=== PATIENT | male | born 1955 | race American Indian/Alaskan Native ===

== ENCOUNTER 2019-02-23 17:05 | Emergency (ER) | payer OTHER ==
--- NOTE | 2019-02-23 17:29 | Emergency Department Report ---
Blank Doc - Documentation Documentation: This is a 64-year-old male that presents with acute right obstructive uropathy measuring 5.6 mm. Was seen in urgent and was sent to the ED. Patient stated has diffuse adbominal pain. This initial assessment/diagnostic orders/clinical plan/treatment(s) is/are subject to change based on patient's health status, clinical progression and re- assessment by fellow clinical providers in the ED. Further treatment and workup at subsequent clinical providers discretion. Patient/guardians urged not to elope from the ED as their condition may be serious if not clinically assessed and managed. Initial orders include: 1- Patient sent to MAIN for further evaluation and treatment 2- labs 3- UA
[2019-02-23 17:59] LABS: Basophils % (Auto) 0.4 % (0.0-1.8); Hematocrit 51.1 % (35.5-45.6); Hemoglobin 17.6 gm/dl (11.8-15.2); Lymphocytes # (Auto) 0.7 K/mm3 (1.2-5.4); Lymphocytes % (Auto) 7.8 % (13.4-35.0); Mean Corpuscular HGB Conc 35 % (32-34); Mean Corpuscular Volume 85 fl (84-94); Monocytes # (Auto) 0.6 K/mm3 (0.0-0.8); Monocytes % (Auto) 7.2 % (0.0-7.3); Platelet Count 138 K/mm3 (140-440); Red Blood Count 5.99 M/mm3 (3.65-5.03); Red Cell Distribution Width 14.3 % (13.2-15.2)
[2019-02-23 18:08] LABS: Alanine Aminotransferase 49 units/L (7-56); Albumin 4.4 g/dL (3.9-5); BUN/Creatinine Ratio 12; Blood Urea Nitrogen 13 mg/dL (9-20); Calcium 9.4 mg/dL (8.4-10.2); Hemolysis Index 13
[2019-02-23 18:09] LABS: Bilirubin,Direct < 0.2 mg/dL (0-0.2)
[2019-02-23 19:38] LABS: Bilirubin,Urine NEG (Negative); Blood,Urine LG (Negative); Color,Urine Yellow (Yellow); Urobilinogen,Urine < 2.0 mg/dL (<2.0)
[2019-02-23 19:40] LABS: Protein,Urine 300 mg/dL mg/dL (Negative); RBC,Urine > 182.0 /HPF (0.0-6.0)
[2019-02-23] MEDS ORDERED: NACL 0.9% 1000 ML 1,000 ML IV ONE (20:13)
[2019-02-23] MEDS ORDERED: LEVAQUIN 750MG/150ML 750 MG/150 ML BAG IV ONE (20:14)
[2019-02-23] MEDS ORDERED: TORADOL IV ONE (20:14)
[2019-02-23] MEDS ORDERED: MORPHINE IV ONE (20:14)
--- NOTE | 2019-02-23 20:33 | Emergency Department Report ---
HPI - General Chief Complaint: Abdominal Pain Time Seen by Provider: 02/23/19 17:26 - HPI HPI: 64-year-old -Swedish male presents to the emergency department with complaint of some right-sided flank pain and groin pain that has been going on since this morning. It was associated with some nausea and vomiting patient denies any fever, hematuria, dysuria. The patient went to urgent care where he was treated with some nausea medication and then sent to outpatient imaging for a CT of the abdomen and pelvis with IV contrast. The patient brings the results with him that shows a right-sided mid ureteral 5.6 mm stone. At this time, the patient says that he still has pain but it is improved and the nausea/vomiting has resolved. He otherwise denies any other significant past medical history. ED Past Medical Hx - Past Medical History Hx Kidney Stones: Yes - Surgical History Past Surgical History?: No - Social History Smoking Status: Never Smoker Substance Use Type: None - Medications Home Medications: Home Medications Medication Instructions Recorded Confirmed Last Taken Type Ciprofloxacin HCl [Ciprofloxacin 500 mg PO Q12HR #10 tab 02/23/19 Unknown Rx TAB] HYDROcodone/APAP 5-325 [[place] 1 each PO Q6HR PRN #10 tablet 02/23/19 Unknown Rx 5/325] Tamsulosin [Flomax] 0.4 mg PO QDAY #5 cap 02/23/19 Unknown Rx ED Review of Systems ROS: Stated complaint: KIDNEY STONES/ABD PAIN Other details as noted in HPI Constitutional: denies: chills, fever Eyes: denies: eye pain, vision change ENT: denies: ear pain, throat pain Respiratory: denies: cough, shortness of breath Cardiovascular: denies: chest pain, palpitations Gastrointestinal: abdominal pain, nausea, vomiting Genitourinary: denies: frequency, discharge Musculoskeletal: denies: joint swelling, arthralgia Skin: denies: rash, lesions Neurological: denies: headache, weakness Physical Exam - Physical Exam Vital Signs: Vital Signs 02/23/19 17:26 Temperature 98.5 F Pulse Rate 85 Respiratory 18 Rate Blood Pressure 154/92 O2 Sat by Pulse 98 Oximetry Physical Exam: GENERAL: The patient is well-developed well-nourished. HENT: Normocephalic. Atraumatic. Patient has moist mucous membranes. EYES: Extraocular motions are intact. NECK: Supple. Trachea is midline. CHEST/LUNGS: Clear to auscultation. There is no respiratory distress noted. HEART/CARDIOVASCULAR: Regular. There is no tachycardia. There is no murmur. ABDOMEN: Abdomen is soft. Unable to reproduce abdominal pain to palpation. No guarding. Patient has normal bowel sounds. There is no abdominal distention. SKIN: Skin is warm and dry. NEURO: The patient is awake, alert, and oriented. The patient is cooperative. The patient has no focal neurologic deficits. The patient has normal speech. MUSCULOSKELETAL: There is no tenderness or deformity. There is no limitation range of motion. There is no evidence of acute injury. BACK: No midline thoracic or lumbar tenderness to palpation, step-off or deformity. No CVA tenderness to palpation. ED Course Vital Signs 02/23/19 17:26 Temperature 98.5 F Pulse Rate 85 Respiratory 18 Rate Blood Pressure 154/92 O2 Sat by Pulse 98 Oximetry ED Medical Decision Making - Lab Data Result diagrams: 02/23/19 17:39 02/23/19 17:39 - Radiology Data Radiology results: report reviewed Outpatient imaging report of CT abdomen and pelvis with IV contrast shows a right sided mid ureter stone of 5.6 mm. - Medical Decision Making This patient presents to the emergency department with some right-sided flank and abdominal pain and pain in the groin. He presents with results from a CT scan of the abdomen and pelvis that shows right mid ureter 5.6 mm kidney stone. There is also some incidental finding of diverticulosis. I explained diverticulosis to the patient and his significant other and he has been given information regarding a diverticulosis diet. We also discussed his kidney s tone. I explained that a 5.6 mm stone has a very good chance of passing. Since he is afebrile, without any further nausea and vomiting, we will attempt to treat this outpatient. His blood work has been unremarkable. Urinalysis shows a very mild urinary tract infection. The patient was given some pain and nausea medication, IV fluid. Upon reevaluation he is feeling improved. He will be given a referral for urology. He will return to the ER with any worsening of his symptoms or any acute distress. - Differential Diagnosis nephrolithiasis, pyelonephritis, UTI, colitis Critical Care Time: No Critical care attestation.: If time is entered above; I have spent that time in minutes in the direct care of this critically ill patient, excluding procedure time. ED Disposition Clinical Impression: Nephrolithiasis, Renal colic UTI (urinary tract infection) Qualifiers: Urinary tract infection type: acute cystitis Hematuria presence: with hematuria Qualified Code(s): N30.01 - Acute cystitis with hematuria Disposition: TO HOME OR SELFCARE Is pt being admited?: No Condition: Stable Instructions: Diverticulosis (ED), Kidney Stones (ED), Urinary Tract Infection in Men (ED), How to Strain Your Urine (ED), Diverticulosis Diet (ED) Additional Instructions: Please follow up with a urologist in the next few days. I am giving you a referral for a local urologist, Dr. Gregorio. Strain your urine to see if you can collect the kidney stone. Return to the emergency Department with any worsening of your symptoms, inability to urinate, development of fever, or with any acute distress. You have been prescribed a medication that is sedating and therefore should not be taken prior to driving, working, and responsible for children and in no way should be mixed with alcohol of any quantity. Prescriptions: Ciprofloxacin HCl [Ciprofloxacin TAB] 500 mg PO Q12HR #10 tab Tamsulosin [Flomax] 0.4 mg PO QDAY #5 cap HYDROcodone/APAP 5-325 [[place] 5/325] 1 each PO Q6HR PRN #10 tablet PRN Reason: Pain Referrals: SANJUANA GREGORIO MD [Staff Physician] - 2-3 Days DONNY AGUILAR MD [Staff Physician] - as needed Time of Disposition: 22:43
[2019-02-23] MEDS ORDERED: MORPHINE ONE (20:38)
[2019-02-23 22:10] VITALS: BP 142/97
== END 2019-02-23 23:31 | disposition home or self-care (01) ==
LOC: ED 17:05
DX: N20.0 Calculus of kidney (principal); N23 Unspecified renal colic; N39.0 Urinary tract infection, site not specified; Z87.442 Personal history of urinary calculi
CPT/HCPCS: 36415; 80048; 80076; 81001; 83690; 85025; 96365; 96375; 99283; J1885; J1956; J2270; J7030

== ENCOUNTER 2019-05-01 11:35 | Emergency (ER) | payer OTHER ==
--- NOTE | 2019-05-01 11:47 | Emergency Department Report ---
Blank Doc - Documentation Documentation: This is a 64-year-old male that presents with abdominal pain with difficulty u rination. This initial assessment/diagnostic orders/clinical plan/treatment(s) is/are subject to change based on patient's health status, clinical progression and re- assessment by fellow clinical providers in the ED. Further treatment and workup at subsequent clinical providers discretion. Patient/guardians urged not to elope from the ED as their condition may be serious if not clinically assessed and managed. Initial orders include: 1- Patient sent to main for further evaluation and treatment 2- labs 3- UA
[2019-05-01 12:12] LABS: Basophils % (Auto) 0.4 % (0.0-1.8); Eosinophils % (Auto) 0.1 % (0.0-4.3); Hemoglobin 16.8 gm/dl (11.8-15.2); Lymphocytes # (Auto) 0.9 K/mm3 (1.2-5.4); Lymphocytes % (Auto) 9.3 % (13.4-35.0); Mean Corpuscular HGB Conc 32 % (32-34); Mean Corpuscular Volume 88 fl (84-94); Monocytes # (Auto) 1.2 K/mm3 (0.0-0.8); Monocytes % (Auto) 13.1 % (0.0-7.3); Platelet Count 123 K/mm3 (140-440); Red Blood Count 5.95 M/mm3 (3.65-5.03); Red Cell Distribution Width 14.8 % (13.2-15.2)
[2019-05-01 12:30] LABS: Calcium 9.3 mg/dL (8.4-10.2)
--- NOTE | 2019-05-01 13:06 | Emergency Department Report ---
ED Abdominal Pain HPI - General Chief Complaint: Abdominal Pain Stated Complaint: ABD PAIN/CANNOT MOVE BOWELS Time Seen by Provider: 05/01/19 11:46 Source: patient, old records reviewed Mode of arrival: Ambulatory Limitations: No Limitations - History of Present Illness Initial Comments: 64-year-old male with a past medical history a previous kidney stone diagnosed on ER visit in February presents to the hospital with complains of inability to urinate or have a bowel movement in the last 2 days. Patient complains of generalized abdominal pain with nausea. One episode of self induced vomiting. Pain moderate in intensity, constant, worse with palpation. Patient denies previous history of urinary retention or difficulty urinating. Denies previous abdominal surgery. During ED visit in February patient presented with an outpatient CT abdomen and pelvis revealing a right-sided mid ureteral 5.6 mm stone. Pt states he never saw a stone pass. He never followed up with a urologist. PMD: Dr. Farmer. - Related Data Previous Rx's Medication Instructions Recorded Last Taken Type Ciprofloxacin HCl [Ciprofloxacin 500 mg PO Q12HR #10 tab 02/23/19 Unknown Rx TAB] HYDROcodone/APAP 5-325 [[place] 1 each PO Q6HR PRN #10 tablet 02/23/19 Unknown Rx 5/325] Tamsulosin [Flomax] 0.4 mg PO QDAY #5 cap 02/23/19 Unknown Rx Allergies Allergy/AdvReac Type Severity Reaction Status Date / Time No Known Allergies Allergy Unverified 02/23/19 17:09 ED Review of Systems ROS: Stated complaint: ABD PAIN/CANNOT MOVE BOWELS Other details as noted in HPI Comment: All other systems reviewed and negative ED Past Medical Hx - Past Medical History Previous Medical History?: Yes Hx Kidney Stones: Yes Additional medical history: chronic back pain - Surgical History Past Surgical History?: No - Social History Smoking Status: Never Smoker Substance Use Type: Alcohol - Medications Home Medications: Home Medications Medication Instructions Recorded Confirmed Last Taken Type Ciprofloxacin HCl [Ciprofloxacin 500 mg PO Q12HR #10 tab 02/23/19 Unknown Rx TAB] HYDROcodone/APAP 5-325 [[place] 1 each PO Q6HR PRN #10 tablet 02/23/19 Unknown Rx 5/325] Tamsulosin [Flomax] 0.4 mg PO QDAY #5 cap 02/23/19 Unknown Rx ED Physical Exam - General Limitations: No Limitations - Other Other exam information: General: No limitations, patient is alert in no acute distress Head exam: Atraumatic, normocephalic Eyes exam: Normal appearance, pupils equal reactive to light, extraocular movements intact ENT: Moist mucous membrane, normal oropharynx Neck exam: Normal inspection, full range of motion, no meningismus nontender Respiratory exam: Clear to auscultation bilateral, no wheezes, rales, crackles Cardiovascular: Normal rate and rhythm, normal heart sounds Abdomen: Soft, nondistended, generalized abdominal tenderness. Increased bowel sounds, no rebound or guarding : Circumcised, no penile lesion, no palpable distended bladder Extremity: Full range of motion normal inspection no deformity Back: Normal Inspection, full range of motion, no tenderness Neurologic: Alert, oriented x3, cranial nerves intact, no motor or sensory deficit Psychiatric: normal affect, normal mood Skin: Warm, dry, intact ED Course Vital Signs 05/01/19 11:46 Temperature 99 F Pulse Rate 94 H Respiratory 18 Rate Blood Pressure 155/100 O2 Sat by Pulse 97 Oximetry - Reevaluation(s) Reevaluation #1: 05/01/19 13:57 rn unable to pass a standard mihsra nor a coude on attempts. no ct evidence of distended bladder. Further attempts discontinued. 05/01/19 14:52 pt had urge to urinate after mishra attempts. pt only produced a small amount of urine 05/01/19 14:52 pt offered pain meds. He declined stating no pain at this time. orders for morphine and zofran canceled - Consultations Consultation #1: 05/01/19 14:12 case d/w [facility] transfer service contacted, awaiting call back from urology. 05/01/19 14:[address] Lloyd urologist at [facility] for transfer to [facility]. Dr Dasilva ED physician aware pt to arrive to ed. ED Medical Decision Making - Lab Data Result diagrams: 05/01/19 11:55 05/01/19 11:55 Lab Results 05/01/19 05/01/19 Range/Units 11:55 11:55 WBC 9.3 (4.5-11.0) K/mm3 RBC 5.95 H (3.65-5.03) M/mm3 Hgb 16.8 H (11.8-15.2) gm/dl Hct 52.0 H (35.5-45.6) % MCV 88 (84-94) fl MCH 28 (28-32) pg MCHC 32 (32-34) % RDW 14.8 (13.2-15.2) % Plt Count 123 L (140-440) K/mm3 Lymph % (Auto) 9.3 L (13.4-35.0) % [place] % (Auto) 13.1 H (0.0-7.3) % Eos % (Auto) 0.1 (0.0-4.3) % Baso % (Auto) 0.4 (0.0-1.8) % Lymph # 0.9 L (1.2-5.4) K/mm3 [place] # 1.2 H (0.0-0.8) K/mm3 Eos # 0.0 (0.0-0.4) K/mm3 Baso # 0.0 (0.0-0.1) K/mm3 Seg Neutrophils % 77.1 H (40.0-70.0) % Seg Neutrophils # 7.2 (1.8-7.7) K/mm3 Sodium 138 (137-145) mmol/L Potassium 4.5 (3.6-5.0) mmol/L Chloride 98.5 (98-107) mmol/L Carbon Dioxide 26 (22-30) mmol/L Anion Gap 18 mmol/L BUN 38 H (9-20) mg/dL Creatinine 5.6 H (0.8-1.5) mg/dL Estimated GFR 13 ml/min BUN/Creatinine Ratio 7 % Glucose 154 H (75-100) mg/dL Calcium 9.3 (8.4-10.2) mg/dL Total Bilirubin 0.40 (0.1-1.2) mg/dL AST 37 (5-40) units/L ALT 49 (7-56) units/L Alkaline Phosphatase 52 (35-129) units/L Total Protein 7.4 (6.3-8.2) g/dL Albumin 4.0 (3.9-5) g/dL Albumin/Globulin Ratio 1.2 % - Radiology Data Radiology results: report reviewed CT ABDOMEN AND PELVIS WITHOUT CONTRAST INDICATION / CLINICAL INFORMATION: urine retention, acute renal failure, no bm 2 days. TECHNIQUE: Axial CT images were obtained through the abdomen and pelvis without IV contrast. All CT scans at this location are performed using CT dose reduction for ALARA by means of automated exposure control. COMPARISON: None available. FINDINGS: LOWER CHEST: No significant abnormality. LIVER: No significant abnormality. GALLBLADDER: No significant abnormality. BILE DUCTS: No significant abnormality. PANCREAS: No significant abnormality. SPLEEN: No significant abnormality. ADRENALS: No significant abnormality. RIGHT KIDNEY and URETER: Marked hydronephrosis of the right kidney is present secondary to obstructing calculus midportion of the right ureter measuring approximately 0.7 cm in diameter. Reticulation of fat in the Gerota's fascia-pararenal fat is noted LEFT KIDNEY and URETER: Moderate h ydronephrosis of the left kidney is present secondary to mid ureter obstructing calculus measuring 0.5 cm in diameter. A 0.56 cm calyx present left kidney. Reticulation of fat in Gerota's fascia-pararenal fat is noted STOMACH and SMALL BOWEL: No significant abnormality. COLON: Diverticulosis of the descending colon and sigmoid colon is noted APPENDIX: No significant abnormality. PERITONEUM: No free fluid. No free air. No fluid collection. LYMPH NODES: No significant adenopathy. AORTA and ARTERIES: No significant abnormality. IVC and VEINS: No significant abnormality. URINARY BLADDER: No significant abnormality. REPRODUCTIVE ORGANS: No significant abnormality. ADDITIONAL FINDINGS: None. SKELETAL SYSTEM: Marked degenerative changes with sclerosis and irregularity of the endplate L4-L5, inflammatory process should be considered. MR lumbar spine with contrast is recommended IMPRESSION: 1. Bilateral hydronephrosis secondary to obstructing calculi mid ureters as described. 2. Left nephrolithiasis 3. Markedly abnormal L4-5 disc space as noted 4. Diverticulosis of the sigmoid colon and descending colon - Medical Decision Making Unfortunately we do not have urology coverage therefore the patient requires transfer for management of bilateral obstructing ureteral stones with acute renal failure. - Differential Diagnosis urinary retention, BPH, prostate cancer, renal failure, obstruction, consti Critical Care Time: No Critical care attestation.: If time is entered above; I have spent that time in minutes in the direct care of this critically ill patient, excluding procedure time. ED Disposition Clinical Impression: Bilateral ureteral calculi, Bilateral hydronephrosis, Acute renal failure, Anuria Disposition: DC/TX-[id number] ANOTHER TYPE HLTHCARE Is pt being admited?: No Does the pt Need Aspirin: No Condition: Stable Time of Disposition: 14:58 (transfer to [facility])
--- NOTE | 2019-05-01 13:50 | Cat Scan Report ---
CT ABDOMEN AND PELVIS WITHOUT CONTRAST INDICATION / CLINICAL INFORMATION: urine retention, acute renal failure, no bm 2 days. TECHNIQUE: Axial CT images were obtained through the abdomen and pelvis without IV contrast. All CT scans at [facility] location are performed using CT dose reduction for ALARA by means of automated exposure control. COMPARISON: None available. FINDINGS: LOWER CHEST: No significant abnormality. LIVER: No significant abnormality. GALLBLADDER: No significant abnormality. BILE DUCTS: No significant abnormality. PANCREAS: No significant abnormality. SPLEEN: No significant abnormality. ADRENALS: No significant abnormality. RIGHT KIDNEY and URETER: Marked hydronephrosis of the right kidney is present secondary to obstructin g calculus midportion of the right ureter measuring approximately 0.7 cm in diameter. Reticulation of fat in the Gerota's fascia-pararenal fat is noted LEFT KIDNEY and URETER: Moderate hydronephrosis of the left kidney is present secondary to mid ureter obstructing calculus measuring 0.5 cm in diameter. A 0.56 cm calyx present left kidney. Reticulation of fat in Gerota's fascia-pararenal fat is noted STOMACH and SMALL BOWEL: No significant abnormality. COLON: Diverticulosis of the descending colon and sigmoid colon is noted APPENDIX: No significant abnormality. PERITONEUM: No free fluid. No free air. No fluid collection. LYMPH NODES: No significant adenopathy. AORTA and ARTERIES: No significant abnormality. IVC and VEINS: No significant abnormality. URINARY BLADDER: No significant abnormality. REPRODUCTIVE ORGANS: No significant abnormality. ADDITIONAL FINDINGS: None. SKELETAL SYSTEM: Marked degenerative changes with sclerosis and irregularity of the endplate L4-L5, i nflammatory process should be considered. MR lumbar spine with contrast is recommended IMPRESSION: 1. Bilateral hydronephrosis secondary to obstructing calculi mid ureters as described. 2. Left nephrolithiasis 3. Markedly abnormal L4-5 disc space as noted 4. Diverticulosis of the sigmoid colon and descending colon Signer Name: Erich Richter MD Signed: 05/01/2019 1:46 PM Workstation Name: [id number]
[2019-05-01] MEDS ORDERED: MORPHINE IV ONE (14:44)
[2019-05-01] MEDS ORDERED: ZOFRAN IV ONE (14:44)
[2019-05-01] MEDS ORDERED: ZOFRAN ONE (15:20)
[2019-05-01] MEDS ORDERED: MORPHINE ONE (15:21)
[2019-05-01 16:10] VITALS: BP 152/89
== END 2019-05-01 16:10 | disposition other institution (70) ==
LOC: ED 11:35
DX: N13.2 Hydronephrosis with renal and ureteral calculous obstruction (principal); G89.29 Other chronic pain; Z79.899 Other long term (current) drug therapy
CPT/HCPCS: 36415; 74176; 80053; 85025; 96374; 96375; 99284; J2270; J2405